=== PATIENT | male | born 1990 | race Caucasian/White ===

== ENCOUNTER 2021-08-21 13:26 | Emergency (ER) | payer OTHER ==
[2021-08-21 13:53] VITALS: BP 134/78; PULSE 78; TEMP 97.7; BMI 27.3
[2021-08-21] MEDS ORDERED: KETOROLAC TROMETHAMINE 30 MG/1 ML VIAL IM ONE (14:09)
[2021-08-21] MEDS ORDERED: METHOCARBAMOL 500 MG TABLET PO ONE (14:09)
[2021-08-21] MEDS ORDERED: KETOROLAC TROMETHAMINE 30 MG/1 ML VIAL ONE (14:13)
[2021-08-21] MEDS ORDERED: METHOCARBAMOL 500 MG TABLET ONE (14:13)
== END 2021-08-21 14:47 | disposition home or self-care (01) ==
LOC: JER 13:26
PROC: 3E023GC Introduction of Other Therapeutic Substance into Muscle, Percutaneous Approach (ICD-10-PCS; principal; 2021-08-21)
DX: M54.50 Low back pain, unspecified (principal)
CPT/HCPCS: 72100-TC-FY; 99284-25

== ENCOUNTER 2021-08-26 08:27 | Emergency (ER) | payer OTHER ==
[2021-08-26 08:33] VITALS: BP 141/84; PULSE 83; TEMP 97.6; BMI 27.2
[2021-08-26] MEDS ORDERED: KETOROLAC TROMETHAMINE 30 MG/1 ML VIAL IM ONE (10:47)
[2021-08-26] MEDS ORDERED: LIDOCAINE 5% TOPICAL PATCH TP ONE (10:47)
[2021-08-26] MEDS ORDERED: KETOROLAC TROMETHAMINE 30 MG/1 ML VIAL ONE (11:11)
[2021-08-26] MEDS ORDERED: LIDOCAINE 5% TOPICAL PATCH ONE (11:11)
[2021-08-26] MEDS ORDERED: LIDOCAINE PATCH REMOVAL MC SCH (22:00)
== END 2021-08-26 11:29 | disposition home or self-care (01) ==
LOC: JERFT 08:27
PROC: 3E023GC Introduction of Other Therapeutic Substance into Muscle, Percutaneous Approach (ICD-10-PCS; principal; 2021-08-26)
DX: M25.512 Pain in left shoulder (principal); M54.89 Other dorsalgia
CPT/HCPCS: 99284-25

== ENCOUNTER 2022-05-22 17:24 | Emergency (ER) | payer BC, OTHER ==
[2022-05-22 17:31] VITALS: BP 117/77; PULSE 73; RESP 18; TEMP 98.9; BMI 26.6
[2022-05-22] MEDS ORDERED: MAG HYDROX/AL HYDROX/SIMETH 30 ML UNIT-DOSE CUP PO ONE (18:17)
[2022-05-22] MEDS ORDERED: FAMOTIDINE 10 MG TABLET PO ONE (18:18)
[2022-05-22] MEDS ORDERED: MAG HYDROX/AL HYDROX/SIMETH 30 ML UNIT-DOSE CUP ONE (18:29)
[2022-05-22] MEDS ORDERED: FAMOTIDINE 10 MG TABLET ONE (18:29)
[2022-05-22 19:10] LABS: BASO % 0.4 % (0-2.0); EOS % 2.9 % (0-4.5); HEMATOCRIT 41.9 % (35.4-49); HEMOGLOBIN 14.7 GM/dL (11.7-16.9); LYMPH % 43.2 % (8-40); MCH 30.6 pg (25.7-33.7); MEAN CELL VOLUME 87.6 fl (80-96); MEAN PLT VOLUME 7.4 fl (7.5-11.1); MONO % 9.7 % (3.8-10.2); NEUT % 43.8 % (42.8-82.8); PLATELET COUNT 256 10^3/uL (134-434); RBC 4.79 M/mm3 (4.00-5.60); RDW 13.3 % (11.9-15.9); WHITE BLOOD COUNT 5.4 K/mm3 (4.0-10.0)
[2022-05-22 19:32] LABS: CALCIUM 8.4 mg/dL (8.5-10.1)
[2022-05-22 19:33] LABS: ALBUMIN 3.6 g/dl (3.4-5.0)
[2022-05-22 19:35] LABS: CREATININE 0.8 mg/dL (0.55-1.3)
[2022-05-22 19:37] LABS: BILIRUBIN,TOTAL 0.5 mg/dL (0.2-1); TOT PROT 6.7 g/dl (6.4-8.2)
[2022-05-22] MEDS ORDERED: PANTOPRAZOLE SODIUM 40 MG VIAL IVPUSH ONE (19:38)
[2022-05-22] MEDS ORDERED: PANTOPRAZOLE SODIUM 40 MG/100 ML BAG IVPB ONE (19:41)
[2022-05-22] MEDS ORDERED: AMOX TR/POT CLAV 500MG/125MG TABLETS (FP) PO ONE (19:50)
[2022-05-22] MEDS ORDERED: AMOX TR/POT CLAV 875MG/125MG TABLETS (FP) PO ONE (19:51)
[2022-05-22] MEDS ORDERED: AMOX TR/POT CLAV 500MG/125MG TABLETS (FP) ONE (19:51)
== END 2022-05-22 20:58 | disposition home or self-care (01) ==
LOC: JER 17:24
PROC: 3E033GC Introduction of Other Therapeutic Substance into Peripheral Vein, Percutaneous Approach (ICD-10-PCS; principal; 2022-05-22)
DX: R10.12 Left upper quadrant pain (principal); Z20.822 Contact with and (suspected) exposure to COVID-19
CPT/HCPCS: 0241U-QW; 36415; 80053; 83690; 85025; 99284-25

== ENCOUNTER 2022-09-13 21:27 | Emergency (ER) | payer BC, OTHER ==
[2022-09-13 21:44] VITALS: BP 126/86; PULSE 79; RESP 20; TEMP 98.2; BMI 27.7
[2022-09-13] MEDS ORDERED: LIDOCAINE PATCH REMOVAL MC SCH (22:00)
[2022-09-13] MEDS ORDERED: ACETAMINOPHEN 500 MG TABLET (FP) PO ONE (22:21)
[2022-09-13] MEDS ORDERED: KETOROLAC TROMETHAMINE 30 MG/1 ML VIAL IM ONE (22:21)
[2022-09-13] MEDS ORDERED: LIDOCAINE 5% TOPICAL PATCH TP ONE (22:21)
[2022-09-13] MEDS ORDERED: METHOCARBAMOL 500 MG TABLET PO ONE (22:22)
[2022-09-13] MEDS ORDERED: LIDOCAINE 5% TOPICAL PATCH ONE (22:24)
[2022-09-13] MEDS ORDERED: KETOROLAC TROMETHAMINE 30 MG/1 ML VIAL ONE (22:25)
[2022-09-13] MEDS ORDERED: METHOCARBAMOL 500 MG TABLET ONE (22:25)
[2022-09-13] MEDS ORDERED: ACETAMINOPHEN 500 MG TABLET (FP) ONE (22:25)
== END 2022-09-13 23:41 | disposition home or self-care (01) ==
LOC: JER 21:27 → JERFT 21:27
PROC: 3E0233Z Introduction of Anti-inflammatory into Muscle, Percutaneous Approach (ICD-10-PCS; principal; 2022-09-13)
DX: M54.50 Low back pain, unspecified (principal); G89.29 Other chronic pain; X50.0XXA Overexertion from strenuous movement or load, initial encounter; Y99.0 Civilian activity done for income or pay
CPT/HCPCS: 99284-25

== ENCOUNTER 2022-11-09 17:30 | Emergency (ER) | payer BC, OTHER ==
[2022-11-09 17:41] VITALS: BMI 20.9
[2022-11-09] MEDS ORDERED: ACETAMINOPHEN 325 MG TABLET (FP) ONE ×2 (18:06→19:30)
[2022-11-09] MEDS ORDERED: ACETAMINOPHEN 500 MG TABLET (FP) PO ONE (18:07)
[2022-11-09] MEDS ORDERED: ACETAMINOPHEN 500 MG TABLET (FP) ONE (18:08)
[2022-11-09] MEDS ORDERED: ONDANSETRON *ODT* 4 MG TABLET SL ONE (18:29)
[2022-11-09] MEDS ORDERED: ONDANSETRON *ODT* 4 MG TABLET ONE (19:30)
[2022-11-09 20:55] LABS: BASO % 0.5 % (0-2.0); EOS % 0.3 % (0-4.5); HEMATOCRIT 42.7 % (35.4-49); HEMOGLOBIN 14.5 GM/dL (11.7-16.9); LYMPH % 7.3 % (8-40); MCH 29.7 pg (25.7-33.7); MCHC 33.9 g/dl (32.0-35.9); MEAN CELL VOLUME 87.5 fl (80-96); MEAN PLT VOLUME 8.3 fl (7.5-11.1); NEUT % 83.9 % (42.8-82.8); PLATELET COUNT 241 10^3/uL (134-434); RBC 4.88 M/mm3 (4.00-5.60); RDW 13.5 % (11.9-15.9); WHITE BLOOD COUNT 7.4 K/mm3 (4.0-10.0)
[2022-11-09 21:07] LABS: POTASSIUM 3.5 mmol/L (3.5-5.1)
[2022-11-09 21:09] LABS: CALCIUM 8.5 mg/dL (8.5-10.1)
[2022-11-09 21:10] LABS: ALBUMIN 3.8 g/dl (3.4-5.0); BLOOD UREA NITROGEN 10.5 mg/dL (7-18)
[2022-11-09 21:13] LABS: CREATININE 0.9 mg/dL (0.55-1.3)
[2022-11-09 21:14] LABS: BILIRUBIN,TOTAL 0.6 mg/dL (0.2-1); TOT PROT 6.7 g/dl (6.4-8.2)
[2022-11-09] MEDS ORDERED: SODIUM CHLORIDE 0.9% 1000 ML INFUS.BAG IV ONE (21:33)
[2022-11-09] MEDS ORDERED: KETOROLAC TROMETHAMINE 30 MG/1 ML VIAL IVPUSH ONE (21:33)
[2022-11-09 21:39] VITALS: BP 118/71; PULSE 92; RESP 19; TEMP 99.4
[2022-11-09] MEDS ORDERED: KETOROLAC TROMETHAMINE 60 MG/2 ML VIAL ONE (21:41)
== END 2022-11-09 22:43 | disposition home or self-care (01) ==
LOC: JER 17:30
PROC: 3E0333Z Introduction of Anti-inflammatory into Peripheral Vein, Percutaneous Approach (ICD-10-PCS; principal; 2022-11-09)
DX: U07.1 COVID-19 (principal); R50.9 Fever, unspecified; M79.10 Myalgia, unspecified site; R05.9 Cough, unspecified; R06.02 Shortness of breath; R00.0 Tachycardia, unspecified
CPT/HCPCS: 0241U-QW; 36415; 71046-TC-FY; 80053; 85025; 93005; 93010; 99285-25; Q0162

== ENCOUNTER 2023-11-03 11:49 | Emergency (ER) | payer BC, OTHER ==
[2023-11-03 12:23] VITALS: BMI 28.6
[2023-11-03] MEDS ORDERED: CEFTRIAXONE 1 GM/50 ML BAG ONE (13:59)
[2023-11-03] MEDS ORDERED: ACETAMINOPHEN INJECTION 100 ML IVPB ONE (13:59)
[2023-11-03 14:02] LABS: VENOUS BASE EXCESS 1.4 mmol/L (-2-2); VENOUS O2 SATURATION 39.6 % (70-80); VENOUS PCO2 45.9 mmHg (38-52); VENOUS PH 7.388 (7.310-7.410)
[2023-11-03 14:05] LABS: BASO % 0.6 % (0-2.0); EOS % 1.7 % (0-4.5); HEMATOCRIT 47.9 % (35.4-49); HEMOGLOBIN 16.5 GM/dL (11.7-16.9); MCH 29.8 pg (25.7-33.7); MCHC 34.5 g/dl (32.0-35.9); MEAN CELL VOLUME 86.6 fl (80-96); MEAN PLT VOLUME 7.3 fl (7.5-11.1); MONO % 10.5 % (3.8-10.2); NEUT % 61.2 % (42.8-82.8); PLATELET COUNT 248 10^3/uL (134-434); RBC 5.54 M/mm3 (4.00-5.60); RDW 14.1 % (11.9-15.9); WHITE BLOOD COUNT 8.1 K/mm3 (4.0-10.0)
[2023-11-03] MEDS: ACETAMINOPHEN 1000 MG/100 ML BAG IVPB ONE (14:05)
[2023-11-03] MEDS: LACTATED RINGERS SOLUTION 1000 ML INFUS.BAG IV ONE (14:05)
[2023-11-03] MEDS: CEFTRIAXONE 1 GM in DEXTROSE 5%-WATER - 100 ML IVPB ONE (14:06)
[2023-11-03] MEDS ORDERED: KCL 10 MEQ IVPB 10 MEQ/100 ML INFUS.BAG IVPB ONE (14:08)
[2023-11-03] MEDS ORDERED: morphine SULFATE 4 MG/ML VIAL ONE (14:08)
[2023-11-03 14:16] LABS: URINE APPEARANCE CLEAR; URINE BILIRUBIN NEGATIVE (NEGATIVE); URINE COLOR DK YELLOW; URINE GLUCOSE (UA) NEGATIVE (NEGATIVE); URINE KETONE TRACE (NEGATIVE); URINE LEUK ESTERASE NEGATIVE (NEGATIVE); URINE NITRITE NEGATIVE (NEGATIVE); URINE PROTEIN TRACE (NEGATIVE)
[2023-11-03 14:16] LABS: INR 1.05 (0.83-1.09); PROTHROMBIN TIME (PATIENT) 11.8 SEC (9.7-13.0)
[2023-11-03 14:19] LABS: ACTIVATED PTT 35.7 SECONDS (25.2-36.5)
[2023-11-03 14:24] LABS: POTASSIUM 3.8 mmol/L (3.5-5.1)
[2023-11-03 14:25] LABS: CALCIUM 9.2 mg/dL (8.5-10.1)
[2023-11-03 14:31] LABS: ALBUMIN 3.8 g/dl (3.4-5.0); BLOOD UREA NITROGEN 13.6 mg/dL (7-18); TOT PROT 7.5 g/dl (6.4-8.2)
[2023-11-03] MEDS ORDERED: PSEUDOEPHEDRINE HCL 60 MG TABLET ONE (15:18)
[2023-11-03] MEDS: PSEUDOEPHEDRINE HCL 30 MG TABLET PO ONE (15:19)
[2023-11-03 16:44] VITALS: TEMP 98.6
[2023-11-03 16:59] VITALS: BP 125/80; PULSE 80; RESP 20
== END 2023-11-03 17:01 | disposition home or self-care (01) ==
LOC: JER 11:49
PROC: 3E033NZ Introduction of Analgesics, Hypnotics, Sedatives into Peripheral Vein, Percutaneous Approach (ICD-10-PCS; principal; 2023-11-03)
PROC: 3E03329 Introduction of Other Anti-infective into Peripheral Vein, Percutaneous Approach (ICD-10-PCS; 2023-11-03)
DX: U07.1 COVID-19 (principal); R50.9 Fever, unspecified; M79.10 Myalgia, unspecified site; R53.83 Other fatigue; R63.0 Anorexia; R05.9 Cough, unspecified; R06.02 Shortness of breath; R51.9 Headache, unspecified; R53.1 Weakness
CPT/HCPCS: 0241U-QW; 36415; 71045-TC-FY; 80053; 81003; 82803; 83605; 84484; 85025; 85610; 85730; 86850; 86900; 86901; 87040; 87086; 87651; 99284-25; J0131

== ENCOUNTER 2023-12-06 09:46 | Emergency (ER) | payer BC, OTHER ==
[2023-12-06] MEDS ORDERED: ACETAMINOPHEN 325 MG TABLET (FP) ONE (10:15)
[2023-12-06] MEDS ORDERED: ONDANSETRON *ODT* 4 MG TABLET ONE (10:19)
[2023-12-06] MEDS: ACETAMINOPHEN 325 MG TABLET (FP) PO ONE (10:26)
[2023-12-06] MEDS: ONDANSETRON *ODT* 4 MG TABLET SL ONE (10:27)
[2023-12-06] MEDS: SODIUM CHLORIDE 0.9% 500 ML INFUS.BAG IV ONE (11:46)
[2023-12-06 11:50] LABS: BASO % 0.5 % (0-2.0); EOS % 0.6 % (0-4.5); HEMOGLOBIN 15.6 GM/dL (11.7-16.9); LYMPH % 19.5 % (8-40); MCH 29.8 pg (25.7-33.7); MCHC 34.7 g/dl (32.0-35.9); MEAN CELL VOLUME 86.1 fl (80-96); MEAN PLT VOLUME 7.1 fl (7.5-11.1); MONO % 9.1 % (3.8-10.2); NEUT % 70.3 % (42.8-82.8); PLATELET COUNT 232 10^3/uL (134-434); RBC 5.23 M/mm3 (4.00-5.60); RDW 14.1 % (11.9-15.9)
[2023-12-06 12:01] LABS: INR 1.09 (0.83-1.09); PROTHROMBIN TIME (PATIENT) 12.5 SEC (9.7-13.0)
[2023-12-06 12:03] LABS: ACTIVATED PTT 34.9 SECONDS (25.2-36.5)
[2023-12-06 12:17] LABS: POTASSIUM 3.9 mmol/L (3.5-5.1)
[2023-12-06] MEDS ORDERED: FAMOTIDINE 20 MG/50 ML IVPB 20 MG/50 ML MG IVPB ONE (12:18)
[2023-12-06] MEDS ORDERED: MAG HYDROX/AL HYDROX/SIMETH 30 ML UNIT-DOSE CUP ONE (12:18)
[2023-12-06 12:19] LABS: CALCIUM 9.3 mg/dL (8.5-10.1)
[2023-12-06 12:20] LABS: ALBUMIN 3.9 g/dl (3.4-5.0); BLOOD UREA NITROGEN 11.9 mg/dL (7-18)
[2023-12-06 12:23] LABS: CREATININE 1.1 mg/dL (0.55-1.3)
[2023-12-06 12:24] LABS: BILIRUBIN,TOTAL 0.9 mg/dL (0.2-1)
[2023-12-06] MEDS: MAG HYDROX/AL HYDROX/SIMETH -MYLANTA- ORAL SUSPENSION PO ONE (12:24)
[2023-12-06] MEDS: FAMOTIDINE 20 MG/50 ML IVPB 20 MG/50 ML MG IVPB ONE (12:25)
[2023-12-06 12:34] LABS: HIV INTERPRETATION NEGATIVE (NEGATIVE)
[2023-12-06 13:10] VITALS: BP 135/82; PULSE 100; RESP 20; TEMP 99.8; BMI 27.4
== END 2023-12-06 15:01 | disposition home or self-care (01) ==
LOC: JER 09:46
PROC: 3E033GC Introduction of Other Therapeutic Substance into Peripheral Vein, Percutaneous Approach (ICD-10-PCS; principal; 2023-12-06)
DX: R11.2 Nausea with vomiting, unspecified (principal); R10.13 Epigastric pain; R19.7 Diarrhea, unspecified; B34.9 Viral infection, unspecified; Z20.822 Contact with and (suspected) exposure to COVID-19
CPT/HCPCS: 0241U-QW; 36415; 76705-TC; 80053; 83690; 85025; 85610; 85730; 86803; 86850; 86900; 86901; 87389; 99284-25; Q0162